=== PATIENT | male | born 2005 | race Two or more races ===

== ENCOUNTER 2024-06-02 09:41 | Emergency (ER) | payer OTHER ==
[~2024-06-02] VITALS: Ht 177.8 cm; Wt 86.2 kg
[2024-06-02] MEDS ORDERED: INSULIN REGULAR, HUMAN 1,000 UNIT/10 ML UNITS SUBCUTANEO ONE (10:00)
[2024-06-02] MEDS ORDERED: 0.9 % SODIUM CHLORIDE 1,000 ML IV ONE (10:00)
[2024-06-02 10:19] LABS: HEMATOCRIT 42.2 % (39.0-48.0); HEMOGLOBIN 14.2 g/dL (13-16.00); MEAN CELL VOLUME 81.7 fL (80.0-100.00); MEAN CORPUSCULAR HEMOGLOBIN 27.6 pg (27.00-32.0); MEAN CORPUSCULAR HGB CONC 33.7 g/dl (32.0-36.0); PLATELET COUNT 279 K/uL (150-450); RED BLOOD COUNT 5.17 M/uL (4.00-6.00); RED CELL DISTRIBUTION WIDTH 12.6 % (11.5-14.5)
[2024-06-02 10:42] LABS: ALBUMIN 4.2 gm/dL (3.4-5.0); BILIRUBIN TOTAL 1.52 mg/dL (0.3-1.2); CALCIUM 9.1 mg/dL (8.5-10.1); CREATININE SERUM 1.02 mg/dL (0.70-1.30); GFR 93.11; GLOBULINA 3.2 G/DL (2.4-3.5); POTASSIUM 4.06 mEq/L (3.5-5.1); TOTAL PROTEIN 7.4 gm/dL (6.4-8.2)
[2024-06-02 10:48] LABS: ABG PH 7.386 (7.35-7.45); ABG PO2 86.5 mmHg (80-100); ABG pCO2 39.8 mmHg (35-45); BASE EXCESS -1.5 mmol/l; BICARBONATE 23.4 mmol/l (23-25); SaO2 96.3 %; Tco2 24.6 mmol/l
[2024-06-02] MEDS ORDERED: INSULIN GLARGINE,HUM.REC.ANLOG 1,000 UNITS/10 ML UNITS SUBCUTANEO ONE (11:45)
[2024-06-02 11:47] LABS: allen test SATISFACTORY; o2 21 %; puncture site RADIAL LEFT
== END 2024-06-02 13:29 | disposition left against medical advice (07) ==
LOC: ER 09:43
PROVIDERS: General Practice
DX: E11.65 Type 2 diabetes mellitus with hyperglycemia (principal)
CPT/HCPCS: 36415; 82803; 96365; 99282; J1815; J7030